=== PATIENT | male | born 1985 | race Caucasian/White ===

== ENCOUNTER → 2017-05-02 | Outpatient (CLI) | payer OTHER ==
[~2017-05-02] MED LIST: ALBUTEROL17 GM INH; NO MEDICATIONS; ULTRAM PO
[2017-05-02 13:01] LABS: HEMATOCRIT 45.2 % (38.0-50.0); MEAN CELL VOLUME 90.9 FL (83-96); MEAN CORPUSCULAR HEMOGLOBIN 30.2 PG (28-34); MEAN CORPUSCULAR HGB CONC 33.3 g/dL (30-36); MEAN PLATELET VOLUME 7.2 FL (6.5-11.5); RED BLOOD COUNT 4.97 X10e (3.90-5.60); RED CELL DISTRIBUTION WIDTH 13.6 % (11.0-15.5); WHITE BLOOD COUNT 7.1 X10e3 (4.0-10.5)
[2017-05-02 13:58] LABS: ALBUMIN SERUM 4.5 g/dL (3.5-5.0); BUN/CREATININE RATIO 14.44; CALCIUM SERUM 8.6 mg/dL (8.4-10.2); CREATININE SERUM 0.9 mg/dL (0.6-1.4); GLOM FILT RATE Estimated 114.2 mL/min (>60); POTASSIUM 4.1 mmol/L (3.5-5.1)
[2017-05-02 14:11] LABS: URINE APPEARANCE CLEAR; URINE BILIRUBIN NEG (NEG); URINE BLOOD 2+ (NEG); URINE COLOR YELLOW; URINE GLUCOSE NEG (NORM); URINE KETONE NEG (NEG); URINE LEUKOCYTE ESTERASE NEG (NEG); URINE NITRATE NEG (NEG); URINE PH 5.5 (5-8); URINE PROTEIN NEG (NEG); URINE SPECIFIC GRAVITY 1.025 (1.003-1.035)
[2017-05-02 14:18] LABS: MICRO INDICATED? YES
[2017-05-02 14:20] LABS: URINE BACTERIA NEG (NEG); URINE MUCUS PRESENT; URINE RBC 0-2 /[HPF] (0-2); URINE SQUAMOUS EPITHELIAL CELL FEW /[HPF]; URINE WBC 0-2 /[HPF] (0-5)
[2017-05-05 13:35] LABS: HA AB IGM (HEPPAN) Nonreactive (()); HB CORE AB IGM (HEPPAN) Nonreactive (Nonreactive); HB S AG (HEPPAN) Nonreactive (Nonreactive); HEP C AB (HEPPAN) Reactive (Nonreactive)
== END | disposition home or self-care (01) ==
LOC: SLAB 12:35
PROVIDERS: Psychiatry & Neurology Neurology
DX: F11.20 Opioid dependence, uncomplicated (principal)
CPT/HCPCS: 36415; 80053; 80074; 81003; 85027; 86592; 87522; 87806

== ENCOUNTER 2017-06-16 15:19 | Emergency (ER) | payer OTHER ==
[~2017-06-16 15:19] MED LIST changes: -NO MEDICATIONS
[2017-06-16] MEDS ORDERED: NO MEDICATIONS (15:21)
== END 2017-06-16 16:09 | disposition home or self-care (01) ==
LOC: SED 15:19
DX: E86.0 Dehydration (principal); R11.0 Nausea
CPT/HCPCS: 99284